=== PATIENT | male | born 1975 | race Hispanic/Latino ===

== ENCOUNTER 2017-02-21 22:27 | Emergency (ER) | payer OTHER ==
[2017-02-21 22:41] VITALS: TEMP 98
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
[2017-02-22 00:32] VITALS: BP 147/95; PULSE 58; RESP 20
[2017-02-22 01:22] VITALS: O2SAT 98
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
--- NOTE | 2017-02-22 14:22 | RAD ---
PROCEDURE: Cervical Spine Radiographs. HISTORY: Pain. COMPARISON: None. FINDINGS: BONES: Alignment maintained. No fracture. Dens Intact. DISC SPACES: Normal. SOFT TISSUES: Normal. No prevertebral soft tissue swelling. OTHER FINDINGS: None. IMPRESSION: No radiographic evidence of acute fracture or subluxation.
== END 2017-02-22 00:32 | disposition home or self-care (01) ==
LOC: C.ER 22:27
DX: S13.4XXA Sprain of ligaments of cervical spine, initial encounter (principal); V49.40XA Driver injured in collision with unspecified motor vehicles in traffic accident, initial encounter; M54.5 Low back pain